=== PATIENT | male | born 1980 | race Caucasian/White ===

== ENCOUNTER 2019-08-26 15:43 | Emergency (ER) | payer OTHER ==
[~2019-08-26] VITALS: Ht 170.2 cm; Wt 56.7 kg
[2019-08-26] MEDS ORDERED: SUPRAX400 M1 PO (16:10)
[2019-08-26] MEDS ORDERED: AZITHROMYCIN250 MG PO (16:10)
[2019-08-26 16:40] VITALS: BP 130/78
== END 2019-08-26 16:41 | disposition home or self-care (01) ==
LOC: M.ERS 15:43
DX: Z20.2 Contact with and (suspected) exposure to infections with a predominantly sexual mode of transmission (principal); F17.210 Nicotine dependence, cigarettes, uncomplicated; Z88.6 Allergy status to analgesic agent